=== PATIENT | female | born 1960 | race Caucasian/White ===

== ENCOUNTER → 2018-04-12 | Outpatient (CLI) | payer OTHER ==
[~2018-04-12] VITALS: Ht 167.6 cm; Wt 108.9 kg
[~2018-04-12] MED LIST: ACYCLOVIR 400400 MG PO; ESCITALOPRAM OX20 MG PO; LIORESAL 10 MG10 MG PO; PROTONIX40 M1 PO; SYNTHROID200 MCG PO; SYNTHROID25 MC1 PO; ZZZQUIL25 M1 PO
--- NOTE | ~2018-04-12 | PATH ---
[facility] [place] [address] PATHOLOGY RPT PROCEDURE Name: KAMLESHDAVIDADILENE Dao Room #: REG YOMI Ervin.#: [id number] Admission: 04/12/18 Date of : 64 Discharge: Report #: [id number] Path Case #: [id number] [facility] Accession Number: [id number] . 01 Material submitted: . PART A: BX OF DUODENUM R/O SPRUE PART B: BX OF GASTRIC R/O H. PYLORI . 01 Clinician provided ICD-10: R10.9 R19.7 K21.9 . 01 Clinical history: . Abdominal pain, diarrhea, reflux . 02 Diagnosis: A. Duodenum, "biopsy of duodenum": - No obvious diagnostic changes. - There is no evidence of acute cryptitis, granulomas, adenomatous change, sprue-like changes or malignancy. . B. Gastric, "biopsy gastric": - Mild chronic reactive gastropathy. - Focal intestinal metaplasia with mild chronic inflammation. - The immunoperoxidase stain for Helicobacter pylori is negative. . (SHA:kashif; 04/13/2018) VERONIQUE/04/13/2018 . 02 Electronically signed: . Dave Dunaway MD, Pathologist NPI- [id number] . 01 Gross description: . A. Received in formalin labeled "Adilene Arevalo, BX of duodenum, rule out sprue," are 4 segments of fabian soft tissue measuring 1.2 x 0.6 x 0.1 cm in aggregate dimensions and ranging from 0.2 to 0.4 cm in maximum dimension. The specimen is submitted entirely in cassette A1. . B. Received in formalin labeled "Adilene Arevalo, BX of gastric, rule out H. pylori," are 4 segments of fabian soft tissue measuring 1.2 x 0.5 x 0.2 cm in aggregate dimensions and ranging from 0.2 to 0.6 cm in maximum dimension. The specimen is submitted entirely in cassette B1. (TSD; 04/12/2018) TOB/TOB . 02 [place] [address] PATHOLOGY RPT PROCEDURE Name: ADILENE AREVALO Room #: REG YOMI Mueller.#: [id number] Admission: 04/12/18 Date of : 64 Discharge: Report #: [id number] Path Case #: [id number] Pathologist provided ICD-10: K31.9, K29.50, R10.9, R19.7, K21.9 . 02 CPT . 629454, 743254, [id number] Specimen Comment: A courtesy copy of this report has been sent to Specimen Comment: [phone], . Specimen Comment: Report sent to / DR TUBBS Specimen Comment: A duplicate report has been generated due to demographic updates. Performed at: [address] [facility], [place] [id number] MD Senthil Salmon MD Phone: [phone] Performed at: [address] [facility] [id number] MD Catalina Jones MD Phone: [phone]
--- NOTE | ~2018-04-12 | P ---
Former[facility] [place] [address] [place] [address] PROCEDURE REPORT Name: ADILENE MACHADO Room #: REG [id number] Admission: 04/12/18 Attend Phys: Denzel Robledo Discharge: Date of : 64 Report #: [id number] THIS REPORT FOR: //name// CC: Denzel Chavez MD DATE OF SERVICE: 04/12/2018 PROCEDURE PERFORMED: Upper endoscopy with biopsies and esophageal dilation. HISTORY OF PRESENT ILLNESS: The patient is a 57-year-old female who has a history of gastroesophageal reflux disease, previously was on omeprazole, switched to pantoprazole, which she takes once a day, but has intermittent breakthrough symptoms of heartburn. She was seen by myself in the office on 04/04/2018. She also complains of intermittent constipation and diarrhea. She has been diagnosed with irritable bowel syndrome in the past, also complains of globus sensation. Denies any true dysphagia. Plan is for upper endoscopy. DESCRIPTION OF PROCEDURE: The risks and benefits of the procedure were explained to the patient, those risks including but not limited to bleeding, perforation, the risk of sedation. She understood these risks and gave informed consent. Sedation was given using propofol per anesthesia. Next, using a standard Olympus upper endoscope, the scope was placed in the patient's mouth and advanced under direct vision through the esophagus, stomach and into the second portion of the duodenum. The larynx was normal in appearance. The upper and mid esophagus was normal. In the distal esophagus, grade B erosive esophagitis was noted. No evidence of stricture. Upon entering the stomach, a small hiatal hernia was noted. Overall, the gastric mucosa was normal. Biopsies were obtained to rule out H. pylori. The pylorus was normal and patent. The duodenal bulb, first and second portion were normal. Scope was then brought back up into the patient's stomach and a Savary guidewire was inserted through the scope, leaving the guidewire in place as the scope was then withdrawn. Next, a 48-Omani Savary dilation of the esophagus was then performed without difficulty. The wire and dilator removed. The scope was reintroduced into the patient's stomach. There was no evidence of mucosal tear after dilation. The scope was then withdrawn and the procedure terminated. The patient tolerated the procedure well. IMPRESSION: 1. Grade B erosive esophagitis. 2. Small hiatal hernia. 3. Otherwise, normal upper endoscopy. RECOMMENDATIONS: 1. Await biopsy results. [address] [address] PROCEDURE REPORT Name: ADILENE MACHADO Room #: REG Feliberto Garay#: [id number] Admission: 04/12/18 Attend Phys: Denzel Robledo Discharge: Date of : 64 Report #: [id number] 2. Observe the patient post-dilation. 3. The patient with grade B erosive esophagitis despite taking Protonix once a day, would increase to b.i.d. 4. Observe. Thank you for allowing me to participate in her care. By: 1031 [id number] Denzel Winston MD /nt
== END | disposition home or self-care (01) ==
LOC: GI 08:10
DX: K29.50 Unspecified chronic gastritis without bleeding (principal); K31.9 Disease of stomach and duodenum, unspecified; K22.10 Ulcer of esophagus without bleeding; E03.9 Hypothyroidism, unspecified; K44.9 Diaphragmatic hernia without obstruction or gangrene; M79.7 Fibromyalgia; F32.9 Major depressive disorder, single episode, unspecified; G89.29 Other chronic pain; Z98.890 Other specified postprocedural states; Z91.040 Latex allergy status; Z79.899 Other long term (current) drug therapy; Z88.8 Allergy status to other drugs, medicaments and biological substances
CPT/HCPCS: 62110; 62900

== ENCOUNTER → 2018-07-17 | Outpatient (CLI) | payer OTHER | LOC: ULTRA 14:19 | DX: Z12.31 Encounter for screening mammogram for malignant neoplasm of breast (principal); N60.01 Solitary cyst of right breast; N60.02 Solitary cyst of left breast ==

== ENCOUNTER → 2018-12-27 | Outpatient (CLI) | payer OTHER | LOC: MRI 12-20 11:04 | DX: M17.11 Unilateral primary osteoarthritis, right knee (principal); M25.461 Effusion, right knee; M67.461 Ganglion, right knee; M71.21 Synovial cyst of popliteal space [Baker], right knee; M25.761 Osteophyte, right knee; Z88.8 Allergy status to other drugs, medicaments and biological substances ==

== ENCOUNTER → 2020-01-02 | Outpatient (CLI) | payer OTHER | LOC: BC 08:29 | PROVIDERS: ATTEND Family Medicine | DX: Z12.31 Encounter for screening mammogram for malignant neoplasm of breast (principal) ==

== ENCOUNTER → 2020-01-24 | Outpatient (CLI) | payer OTHER | LOC: ULTRA 10:28 | PROVIDERS: ATTEND Internal Medicine | DX: E04.1 Nontoxic single thyroid nodule (principal) ==

== ENCOUNTER → 2021-04-03 | Outpatient (CLI) | payer OTHER | END | disposition home or self-care (01) | LOC: BC 03-03 14:29 → ULTRA 09:14 | PROVIDERS: ATTEND Family Medicine | DX: R92.8 Other abnormal and inconclusive findings on diagnostic imaging of breast (principal) ==